=== PATIENT | female | born 1995 | race African-American/Black ===

== ENCOUNTER 2017-07-16 21:38 | Emergency (ER) | payer OTHER ==
[~2017-07-16] VITALS: Ht 157.5 cm; Wt 65.0 kg
[2017-07-16 21:41] VITALS: BP 133/80; PULSE 117; RESP 20; TEMP 100.7; O2SAT 100
[2017-07-16] MEDS ORDERED: BACT800T5 PO (21:44)
[2017-07-16] MEDS ORDERED: birth control PO (21:44)
--- NOTE | 2017-07-16 21:47 | PD ---
HPI Chief Complaint: Abdominal Pain Time Seen by Provider: 21:47 Travel History International Travel<30 days: No Contact w/Intl Traveler<30days: No Traveled to known affect area: No History of Present Illness HPI 22-year-old female came in for right sided flank pain that as per her has been going on for quite a few hours. But she was in a bus traveling and hence was not able to seek medical help earlier. Upon arrival in the triage patient had a temperature of 100.7 and tachycardic. She was also visibly upset and crying when I went to see her. She said she was really anxious because of the fever. Patient was diagnosed with UTI 4 days ago and has been on Bactrim. She has taken 6 pills so far. No history of nausea or vomiting. She is answering questions appropriately in spite of being so upset. She is otherwise a healthy person. [facility] Past Medical History Narrative Medical List of her past medical, surgical, social and family history is reviewed from the nursing note. Medical History: Denies Significant Hx Diminished Hearing: No Tetanus Vaccination: < 5 Years ?: Not LMP: 07/10/2017 Past Surgical History Surgical History: No Previous Surgery Social History Alcohol Use: Yes (occasionally) Tobacco Use: No Substance Use: No Allergies-Medications (Allergen,Severity, Reaction): Coded Allergies: No Known Allergies (Unverified , 07/16/17) Comments No known drug allergies. Reported Meds & Prescriptions Reported Meds & Active Scripts Active Reported [ control ] 1 Tab PO DAILY Bactrim DS (Sulfamethoxazole-Trimethoprim) 800-160 Mg Tab 1 Tab PO BID Narrative Medication List of her home medications reviewed from the nursing note. Review of Systems Except as stated in HPI: all other systems reviewed are Neg Physical Exam Narrative GENERAL: Awake, alert, anxious, significant distress SKIN: Focused skin assessment warm/dry. HEAD: Atraumatic. Normocephalic. EYES: Pupils equal and round. No scleral icterus. No injection or drainage. ENT: No nasal bleeding or discharge. Mucous membranes pink and moist. NECK: Trachea midline. No JVD. CARDIOVASCULAR: Regular rate and rhythm. No murmur appreciated. RESPIRATORY: No accessory muscle use. Clear to auscultation. Breath sounds equal bilaterally. GASTROINTESTINAL: Abdomen soft, non-tender, nondistended. Hepatic and splenic margins not palpable. Right CVA tenderness. MUSCULOSKELETAL: No obvious deformities. No clubbing. No cyanosis. No edema. NEUROLOGICAL: Awake and alert. No obvious cranial nerve deficits. Motor grossly within normal limits. Normal speech. PSYCHIATRIC: Appropriate mood and affect; insight and judgment normal. Data Data Last Documented VS Orders Orders Complete Blood Count With Diff (07/16/17 21:53) Comprehensive Metabolic Panel (07/16/17 21:53) Lactic Acid Sepsis Protocol (07/16/17 21:53) Urinalysis - C+S If Indicated (07/16/17 21:53) Blood Culture (07/16/17 21:53) Blood Glucose (07/16/17 21:53) Ecg Monitoring (07/16/17 21:53) Iv Access Insert/Monitor (07/16/17 21:53) Oximetry (07/16/17 21:53) Oxygen Administration (07/16/17 21:53) Sodium Chlor 0.9% 1000 Ml Inj (Ns 1000 M (07/16/17 21:53) Sodium Chlor 0.9% 1000 Ml Inj (Ns 1000 M (07/16/17 21:53) Sodium Chlor 0.9% 1000 Ml Inj (Ns 1000 M (07/16/17 21:53) Ketorolac Inj (Toradol Inj) (07/16/17 22:00) Acetaminophen (Tylenol) (07/16/17 22:00) Ed Urine Pregnancytest Poc (07/16/17 21:53) Ceftriaxone Inj (Rocephin Inj) (07/16/17 22:00) Ct Abd/Pel W/O Iv Contrast (07/16/17 ) Labs Laboratory Tests Test 07/16/17 22:05 White Blood Count 4.3 TH/MM3 Red Blood Count 4.68 MIL/MM3 Hemoglobin 13.5 GM/DL Hematocrit 41.2 % Mean Corpuscular Volume 88.1 FL Mean Corpuscular Hemoglobin 28.8 PG Mean Corpuscular Hemoglobin Concent 32.7 % Red Cell Distribution Width 12.9 % Platelet Count 251 TH/MM3 Mean Platelet Volume 7.6 FL Neutrophils (%) (Auto) 72.2 % Lymphocytes (%) (Auto) 14.3 % Monocytes (%) (Auto) 10.8 % Eosinophils (%) (Auto) 2.6 % Basophils (%) (Auto) 0.1 % Neutrophils # (Auto) 3.1 TH/MM3 Lymphocytes # (Auto) 0.6 TH/MM3 Monocytes # (Auto) 0.5 TH/MM3 Eosinophils # (Auto) 0.1 TH/MM3 Basophils # (Auto) 0.0 TH/MM3 CBC Comment DIFF FINAL Differential Comment Urine Color YELLOW Urine Turbidity CLEAR Urine pH 6.5 Urine Specific [place] 1.031 Urine Protein TRACE mg/dL Urine Glucose (UA) NEG mg/dL Urine Ketones 10 mg/dL Urine Occult Blood SMALL Urine Nitrite NEG Urine Bilirubin NEG Urine Urobilinogen LESS THAN 2.0 MG/DL Urine Leukocyte Esterase NEG Urine RBC 7 /hpf Urine WBC LESS THAN 1 /hpf Urine Squamous Epithelial Cells 3 /hpf Urine Mucus MOD /lpf Microscopic Urinalysis Comment CATH-CULT NOT IND Blood Urea Nitrogen 12 MG/DL Creatinine 1.01 MG/DL Random Glucose 81 MG/DL Total Protein 8.4 GM/DL Albumin 3.7 GM/DL Calcium Level 8.8 MG/DL Alkaline Phosphatase 87 U/L Aspartate Amino Transf (AST/SGOT) 18 U/L Alanine Aminotransferase (ALT/SGPT) 23 U/L Total Bilirubin 0.2 MG/DL Sodium Level 137 MEQ/L Potassium Level 3.8 MEQ/L Chloride Level 102 MEQ/L Carbon Dioxide Level 24.4 MEQ/L Anion Gap 11 MEQ/L Estimat Glomerular Filtration Rate 69 ML/MIN Lactic Acid Level 1.2 mmol/L [facility] Medical Decision Making Medical Screen Exam Complete: Yes Emergency Medical Condition: Yes Medical Record Reviewed: Yes Differential Diagnosis Pyelonephritis, ureteral colic, sepsis Narrative Course 11:04 PM some of the blood test results are back. CBC is within normal limits. UA is within normal limits. Thing for the lactic acid to be resulted. Patient is getting IV fluid as per sepsis protocol and IV Rocephin anticipating a pyelonephritis. I had ordered a CT scan without contrast which does not show any renal colic. Overall it is within normal limits. 11:05 PM rest of the chemistry lactic acid is back and within normal limit. Patient was given pain medication and by mouth Tylenol. I'll discharge her home. Procedures EKG Prior to Arrival: No Diagnosis Primary Impression: Abdominal pain Qualified Codes: R10.9 - Unspecified abdominal pain Additional Impression: Fever Qualified Codes: R50.9 - Fever, unspecified Referrals: Primary Care Physician Additional Instructions: Please return to the ER if the condition worsens or any other new concerns. Otherwise continue taking the Bactrim and finish the course. Follow-up with your primary care early next week. Drink lots of fluid. Take Tylenol/Motrin/ ibuprofen/Advil for pain or fever. Med/Other Pt SpecificInfo: No Change to Meds Disposition: 01 DISCHARGE HOME Condition: Stable Albaro Vargas MD Jul 16, 2017 21:47
[2017-07-16] MEDS ORDERED: SODIUM CHLOR 0.9% 1000 ML INJ 1,000 ML IV ONE ×2 (21:53)
[2017-07-16] MEDS ORDERED: SODIUM CHLOR 0.9% 1000 ML INJ 100 ML IV ONE (21:53)
[2017-07-16] MEDS ORDERED: ACETAMINOPHEN 325 MG TAB PO ONE (22:00)
[2017-07-16] MEDS ORDERED: KETOROLAC TROMETHAMINE 30 MG/ML (IVP) VIAL IV PUSH ONE (22:00)
[2017-07-16] MEDS ORDERED: cefTRIAXone INJ 1,000 MG in SODIUM CHLORIDE 0.9% INJ 100 ML IV ONE (22:00)
[2017-07-16 22:12] VITALS: RESP 18
[2017-07-16 22:38] LABS: AUTOMATED NEUTROPHIL # 3.1 TH/MM3 (1.8-7.7); BASOPHIL % 0.1 % (0.0-2.0); BLOOD, URINE SMALL (NEG); EOSINOPHIL # 0.1 TH/MM3 (0-0.4); EOSINOPHIL % 2.6 % (0.0-4.0); GLUCOSE,URINE NEG (NEG); HEMATOCRIT 41.2 % (35.0-46.0); HEMO FLAGS DIFF FINAL; KETONE, URINE 10 mg/dL (NEG); LYMPH % 14.3 % (9.0-44.0); LYMPHOCYTE # 0.6 TH/MM3 (1.0-4.8); MEAN CELL VOLUME 88.1 FL (80.0-100.0); MEAN CORPUSCULAR HEMOGLOBIN 28.8 PG (27.0-34.0); MEAN CORPUSCULAR HGB CONC 32.7 % (32.0-36.0); MONO % 10.8 % (0.0-8.0); MUCUS URINE MOD /lpf (OCC); NEUT % 72.2 % (16.0-70.0); NITRITE,URINE NEG (NEG); PH, URINE 6.5 (5.0-8.5); PLATELET COUNT 251 TH/MM3 (150-450); RED BLOOD COUNT 4.68 MIL/MM3 (4.00-5.30); RED CELL DISTRIBUTION WIDTH 12.9 % (11.6-17.2); SQUAMOUS EPITHELIAL CELL URINE 3 /hpf (0-5); URINE COLOR YELLOW (YELLW/STRAW); WHITE BLOOD COUNT 4.3 TH/MM3 (4.0-11.0)
[2017-07-16 22:42] LABS: COMMENT (UR) CATH-CULT NOT IND; CULTURE IF INDICATED CATH CULTURE NOT IND
--- NOTE | 2017-07-16 22:44 | RADRPT ---
EXAM DATE/TIME: 07/16/2017 22:30 [place] COMPARISON: No previous studies available for comparison. INDICATIONS : Fever with bilateral lower flank pain. ORAL CONTRAST: No oral contrast ingested. RADIATION DOSE: 7.32 CTDIvol (mGy) MEDICAL HISTORY : None SURGICAL HISTORY : None. ENCOUNTER: Initial ACUITY: 1 day PAIN SCALE: 6/10 LOCATION: Bilateral flank TECHNIQUE: Volumetric scanning of the abdomen and pelvis was performed. Using automated exposure control and ad justment of the mA and/or kV according to patient size, radiation dose was kept as low as reasonably achievable to obtain optimal diagnostic quality images. DICOM format image data is available electro nically for review and comparison. FINDINGS: LOWER LUNGS: The visualized lower lungs are clear. LIVER: Homogeneous density without lesion. There is no dilation of the biliary tree. No calcified gallston es. SPLEEN: Normal size without lesion. PANCREAS: Within normal limits. KIDNEYS: Normal in size and shape. There is no mass, stone, or hydronephrosis. ADRENAL GLANDS: Within normal limits. VASCULAR: There is no aortic aneurysm. BOWEL/MESENTERY: No oral contrast was given limiting the sensitivity of the exam for GI pathology. The stomach, small bowel, and colon demonstrate no acute abnormality. There is no free intraperitoneal air or fluid. ABDOMINAL WALL: Within normal limits. RETROPERITONEUM: There is no lymphadenopathy. BLADDER: No wall thickening or mass. REPRODUCTIVE: The uterus and adnexa appear unremarkable. There is a poorly defined 2.4 x 2.3 cm cystic structure in the left side of the pelvis measuring approximately 8 Hounsfield units in density. INGUINAL: There is no lymphadenopathy or hernia. MUSCULOSKELETAL: Within normal limits for patient age. CONCLUSION: 1. The kidneys appear grossly unremarkable on this noncontrast exam. There is no renal calculi or obs truction. 2. Poorly defined cystic structure in the left side of the pelvis most characteristic of an ovarian c yst. This measures up to 2.4 x 2.3 cm. Ruben Lion MD on July 16, 2017 at 22:40 Board Certified Radiologist. This report was verified electronically.
[2017-07-16 22:59] LABS: ALT (GPT) 23 U/L (10-53); ANION GAP 11 MEQ/L (5-15); AST (GOT) 18 U/L (15-37); BICARBONATE 24.4 MEQ/L (21.0-32.0); BLOOD UREA NITROGEN 12 MG/DL (7-18); CHLORIDE 102 MEQ/L (98-107); GLOMERULAR FILTRATION RATE 69 ML/MIN (>89); POTASSIUM 3.8 MEQ/L (3.5-5.1); SODIUM (NA) 137 MEQ/L (136-145)
[2017-07-16 23:02] LABS: ALKALINE PHOSPHATASE 87 U/L (45-117); TOTAL BILIRUBIN ADULT 0.2 MG/DL (0.2-1.0)
[2017-07-16 23:08] VITALS: PULSE 102; RESP 18; O2SAT 97
[2017-07-16 23:26] VITALS: TEMP 99.3
== END 2017-07-16 23:45 | disposition home or self-care (01) ==
LOC: NEPD 21:38
DX: R10.9 Unspecified abdominal pain (principal); R50.9 Fever, unspecified
CPT/HCPCS: 74176; 80053; 81001; 83605; 84703; 85025; 87040; 96361; 96365; 96375; 99285; J0696; J1885; J7030